=== PATIENT | female | born 1960 | race Caucasian/White ===

== ENCOUNTER → 2022-12-02 07:22 | Outpatient (BNVA) | payer OTHER, SELFPAY | PROVIDERS: PCP Nurse Practitioner Family; Visit Provider Student in an Organized Health Care Education/Training Program | DX: M05.79 Rheumatoid arthritis with rheumatoid factor of multiple sites without organ or systems involvement (principal); Z79.631 Long term (current) use of antimetabolite agent | CPT/HCPCS: 99202 ==

== ENCOUNTER → 2023-02-21 10:32 | Outpatient (BNVA) | payer OTHER, SELFPAY | PROVIDERS: PCP Nurse Practitioner Family; Visit Provider Student in an Organized Health Care Education/Training Program ==

== ENCOUNTER 2023-05-31 10:35 | Outpatient (AMB) | payer OTHER, SELFPAY ==
--- NOTE | 2023-05-31 10:40 | MHC.OFFVIS ---
Intake Vital Signs 05/31/23 10:41 Height 5 ft 6 in Weight 224 lb 10.417 oz BMI 36.3 BP 110/68 Blood Pressure Location Rt brachial Position Sitting Pulse 72 Pulse Source Pulse Oximeter Pulse Oximetry (%) 97 Oxygen Delivery Method Room Air Intake Visit Reasons: RA Intake Note: Patient presents for follow up RA Allergies No Known Allergies Allergy (Verified 05/31/23 10:43) Medication List - Last Reconciled 05/31/23 by Champ Leonardo MD bupropion HCl 300 mg PO DAILY calcipotriene 0.005% 1 appl topical DAILY calcium citrate-vitamin D3 250 mg-5 mcg (200 unit) 1 tab PO DAILY cyanocobalamin (vitamin B-12) (Vitamin B-12) 1,000 mcg PO DAILY ergocalciferol (vitamin D2) 50 mcg PO DAILY fluocinolone 0.025% 1 appl topical BID fluoxetine 40 mg PO DAILY folic acid 1 mg PO DAILY lactobacillus combination no.9 (Adult 50 Plus Probiotic) 4,000 mmu cells PO DAILY levothyroxine 175 mcg PO DAILY losartan 100 mg PO DAILY methotrexate sodium 20 mg (8 x 2.5 mg) PO QWEEK metoprolol succinate ER 50 mg PO DAILY semaglutide (weight loss) (Wegovy) mg subcut simvastatin 20 mg PO DAILY quaphbw-lxis-iphqw-oreg-capryl 100 mg-150 mg- 50 mg-150 mg caps PO DAILY HPI HPI Comments History of Present Illness Details 63-year-old female with seropositive rheumatoid arthritis returns for follow-up. She has been taking methotrexate 20 mg weekly since last visit. Patient states that her overall joint pain and stiffness is improved. However she continues to get intermittent joint pains especially in her knees. Of month ago she received a cortisone injection for her right knee with some improvement. Patient continues to feel unsteady. She feels that the room spins when she rolls over in bed. Also when she walks she feels unsteady. She also complains of generalized fatigue and exhaustion. She has had those symptoms for years. However she gets a little more fatigued the day after she takes methotrexate. She also gets some nausea with oral methotrexate. She has been getting leg cramps in her left lower extremity at night. This has been going on over the last month. Initial history: This is a 62-year-old female with a past medical history of psoriasis, malignant melanoma s/p excision, Lambert-Eaton syndrome, dyslipidemia, hypertension, migraines presents for evaluation of inflammatory arthritis. 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 She stated she has had extensive malignancy screening and her evaluation was negative. Patient has had bilateral knee pain for 6-7 years. Bilateral knee replacement was recommended, she had left knee replacement in February of 2021. Since then patient has had worsening bilateral knee pain as well as generalized fatigue and generalized stiffness. She was evaluated by cracker sprayer and was found to have pernicious anemia. She is currently getting vitamin B12 supplementation without significant improvement in her fatigue. She was evaluated by Dr. Galicia and was told she has an inflammatory arthritis but Dr. Galicia left the practice before treatment could be initiated. [facility] [place] Medical History Atypical chest pain Depression Eaton-Lambert syndrome Eczema Former heavy tobacco smoker Hyperlipemia Hypertension Hypothyroidism Left ventricular hypertrophy Malignant melanoma Migraines Morbid obesity Psoriasis Rosacea Thyroid nodule Surgical History Hx of knee surgery Family History Father Chronic ischemic heart disease Mother Chronic ischemic heart disease Maternal Grandmother Breast cancer Paternal Grandmother Breast cancer Social History Alcohol intake: current Alcohol intake frequency: does not drink Patient Tobacco Use Status: Never used Tobacco Review of Systems Const Reports fatigue, Reports headache(s) and Reports lethargy ENT Reports vertigo, Reports dizziness and Reports headache(s) Reports nocturia Musc Reports arthralgias Neuro Reports vertigo, Reports dizziness and Reports headache(s) Endo Reports fatigue Physical Exam Vital Signs: Last Vital Signs Pulse 72 05/31/23 10:41 BP 110/68 05/31/23 10:41 Pulse Ox 97 05/31/23 10:41 Oxygen Delivery Method Room Air 05/31/23 10:41 BMI result Body Mass Index 36.3 Const General: cooperative, healthy appearing and comfortable Nutritional Appearance: obese morbidly obese Orientation/consciousness: patient oriented x3 Limitations: ambulation with cane HEENT Head: Yes normocephalic and Yes atraumatic Mouth: moist mucous membranes Resp Effort & Inspection: normal respiratory effort and able to speak in complete sentences Auscultation: clear to auscultation bilaterally Cardio Rate: regular rate Rhythm: regular rhythm Heart sounds: S1 normal heart sound present and S2 normal heart sound present Neuro General: patient oriented x3 Extrem Other: Right wrist tenderness to palpation and pain with full flexion and extension No elbow tenderness or pain with full flexion and extension. Right knee pain with any range of motion Right ankle tenderness anteriorly. Negative MTP squeeze test Results Reviewed Results Reviewed: Labs 07/2022? JEB negative? HLA B27 negative? RF negative? SSA/SSB negative? CCP 192 CRP negative? CMP unremarkable? Sed rate 38 SI joint x-ray 07/2022? Impression no evidence of sacroiliitis or ankylosis.?? Lumbosacral spine x-ray 07/2022? Impression 1. Minimal degenerative change at L2-3 and L3-4 likely clinically insignificant.?? 2. No acute bony abnormality.? Minimal anterior wedging of L1 Bilateral ankle x-rays 12/22? Impression:? No acute bony abnormality.? Bilateral calcaneal spurring? Bilateral feet x-rays 01/19? Impression:? No acute bone abnormality.? Bilateral calcaneal spurring Bilateral hand x-rays? Impression:? No acute bone abnormality.? Soft tissue calcifications adjacent to the IP joints of the thumbs and right 1st carpal row which may represent early degenerative change Assessment & Plan Assessment & Plan (1) Rheumatoid arthritis: Comment: -ve RF, ++CCP Diagnosed 11/2022 Methotrexate started 11/2022 Code(s): M06.9 - Rheumatoid arthritis, unspecified Qualifiers: Rheumatoid arthritis location: multiple sites Rheumatoid factor presence: with rheumatoid factor Qualified Code(s): M05.79 - Rheumatoid arthritis with rheumatoid factor of multiple sites without organ or systems involvement Plan: This is a 63-year-old female with seropositive RA who returns for follow-up. Doing better overall since methotrexate was started but continues to have multiple swollen and tender joints as well as elevated inflammatory markers on methotrexate 20 mg once weekly. Will change methotrexate to subcutaneous route and increase to 25 mg weekly Infectious screening hepatitis panel and T spot negative 2022 Labs before next visit in 3 months (2) long term care phlebotomist methotrexate user: Code(s): Z79.631 - [facility] (current) use of antimetabolite agent Plan: Side effects of methotrexate were discussed with the patient in detail including oral ulcers, elevated LFTs, abdominal discomfort, and possible pancytopenia is. Will monitor patient for side effects with frequent lab work. Advised patient to take folic acid daily to prevent complications of methotrexate. Patient has had normocytic anemia for years. Her hemoglobin fluctuates from 9.0 to 11.0 (3) Osteoarthritis of right knee: Code(s): M17.11 - Unilateral primary osteoarthritis, right knee Qualifiers: Osteoarthritis type: primary Qualified Code(s): M17.11 - Unilateral primary osteoarthritis, right knee Plan: Patient was advised to get bilateral knee replacement just before the pandemic. The left knee was replaced but the right knee was not done. She is having worsening pain and difficulty walking using her right knee. Patient follows up regularly with orthopedic surgery and she had a cortisone injection a month ago (4) Dizziness: Code(s): R42 - Dizziness and giddiness Plan: Patient gets vertigo when she rolls over in bed. Advised patient to seek referral to an ENT specialist (5) Leg cramps: Code(s): R25.2 - Cramp and spasm Plan: Start vitamin-E trial Plan I spent 46 minutes reviewing patient's chart, evaluating patient, ordering diagnostic workup, counseling patient and documenting in the chart Orders: Orders Comprehensive Met. Panel 3 Months Z79.631 - [facility] (current) use of antimetabolite agent C Reactive Protein 3 Months Z79.631 - [facility] (current) use of antimetabolite agent Complete Blood Count Auto Diff 3 Months Z79.631 - long term care phlebotomist (current) use of antimetabolite agent Erythrocyte Sedimentation Rate 3 Months Z79.631 - [facility] (current) use of antimetabolite agent Medications: New methotrexate (PF) (Rasuvo (PF)) 25 mg (0.5 mL) subcut QWEEK 2 mL 2RF vitamin E (dl, acetate) nighlty 360 mg (2 x 180 mg (400 unit)) PO DAILY 60 caps 2RF Coding Level of Care Code Est Pt Level 5 (73263) Diagnoses Rheumatoid arthritis M05.79 Rheumatoid arthritis location: multiple sites Rheumatoid factor presence: with rheumatoid factor [facility] methotrexate user Z79.631 Osteoarthritis of right knee M17.11 Osteoarthritis type: primary Dizziness R42 Leg cramps R25.2
[2023-05-31 10:41] VITALS: BP 110/68; PULSE 72; O2SAT 97; BMI 36.3
== END 2023-05-31 11:30 | disposition home or self-care (01) ==
PROVIDERS: PCP Nurse Practitioner Family; Visit Provider Student in an Organized Health Care Education/Training Program
DX: M05.79 Rheumatoid arthritis with rheumatoid factor of multiple sites without organ or systems involvement (principal); Z79.631 Long term (current) use of antimetabolite agent; M17.11 Unilateral primary osteoarthritis, right knee; R42 Dizziness and giddiness; R25.2 Cramp and spasm
CPT/HCPCS: 99215

== ENCOUNTER → 2023-05-31 10:35 | Outpatient (BNVA) | payer OTHER, SELFPAY | PROVIDERS: PCP Nurse Practitioner Family; Visit Provider Student in an Organized Health Care Education/Training Program | DX: M05.79 Rheumatoid arthritis with rheumatoid factor of multiple sites without organ or systems involvement (principal); M17.11 Unilateral primary osteoarthritis, right knee; G70.80 Lambert-Eaton syndrome, unspecified; R53.83 Other fatigue; R42 Dizziness and giddiness; R25.2 Cramp and spasm; Z85.820 Personal history of malignant melanoma of skin; Z79.631 Long term (current) use of antimetabolite agent | CPT/HCPCS: 99212 ==

== ENCOUNTER 2023-09-07 10:59 | Outpatient (AMB) | payer OTHER, SELFPAY ==
[2023-09-07 11:01] VITALS: BP 142/70; PULSE 71; TEMP 36.2; O2SAT 99; BMI 37.3
--- NOTE | 2023-09-07 11:01 | MHC.OFFVIS ---
Intake Vital Signs 09/07/23 11:01 Height 5 ft 6 in Weight 231 lb 0.711 oz BMI 37.3 BP 142/70 H Blood Pressure Location Rt brachial Position Sitting Pulse 71 Pulse Source Pulse Oximeter Temp 97.1 F Temp Source Skin Pulse Oximetry (%) 99 Intake Visit Reasons: RA Intake Note: Pt last seen 05/31/23, presents today for follow up and test results. [employer] Rep Required: No Accompanied by: Self / Same As Patient Allergies No Known Allergies Allergy (Verified 09/07/23 11:06) Medication List - Last Reconciled 09/07/23 by Champ Leonardo MD albuterol sulfate 90 mcg/actuation inhalation bupropion HCl 300 mg PO DAILY calcipotriene 0.005% 1 appl topical DAILY veqkxzm-B1-ccfg-copper-bravo 325 mg-12.5 mcg -2.75 mg (Citracal-D3 Maximum Plus) 1 tab PO DAILY cyanocobalamin (vitamin B-12) (Vitamin B-12) 1,000 mcg PO DAILY ergocalciferol (vitamin D2) 50 mcg PO DAILY fluocinolone 0.025% 1 appl topical BID fluoxetine 40 mg PO DAILY folic acid 1 mg PO DAILY hydrocortisone 2.5% topical lactobacillus combination no.9 (Adult 50 Plus Probiotic) 4,000 mmu cells PO DAILY levothyroxine 175 mcg PO DAILY losartan 100 mg PO DAILY methotrexate (PF) (Rasuvo (PF)) 25 mg (0.5 mL) subcut QWEEK metoprolol succinate ER 50 mg PO DAILY metronidazole 1% 1 appl topical DAILY semaglutide (weight loss) (Wegovy) mg subcut semaglutide (weight loss) (Wegovy) mg subcut simvastatin 20 mg PO DAILY ejhfgeg-uxoz-vudpw-oreg-capryl 100 mg-150 mg- 50 mg-150 mg caps PO DAILY vitamin E (dl, acetate) 360 mg (2 x 180 mg (400 unit)) PO BEDTIME HPI HPI Comments History of Present Illness Details 63-year-old female with seropositive rheumatoid arthritis returns for follow-up. She is on Rasuvo 25 mg subcutaneously once weekly. She states that she continues to have pain in her fingers, toes, hands. She also has pain in her right knee. She was unable to walk 2 weeks ago. She saw her orthopedic surgeon and received a steroid injection. Previously right knee replacement was suggested then it was postponed during the pandemic. She states that gel injections are planned. States that she gets significant fatigue the day after she takes methotrexate. States that the leg cramps are improved overall. States that she will a neurologist soon to evaluate her Lambert-Eaton syndrome Initial history: This is a 62-year-old female with a past medical history of psoriasis, malignant melanoma s/p excision, Lambert-Eaton syndrome, dyslipidemia, hypertension, migraines presents for evaluation of inflammatory arthritis. 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 She stated she has had extensive malignancy screening and her evaluation was negative. Patient has had bilateral knee pain for 6-7 years. Bilateral knee replacement was recommended, she had left knee replacement in February of 2021. Since then patient has had worsening bilateral knee pain as well as generalized fatigue and generalized stiffness. She was evaluated by chief information security officer and was found to have pernicious anemia. She is currently getting vitamin B12 supplementation without significant improvement in her fatigue. She was evaluated by Dr. Galicia and was told she has an inflammatory arthritis but Dr. Galicia left the practice before treatment could be initiated. [facility] Medical History Left ventricular hypertrophy Hypertension Eaton-Lambert syndrome Rosacea Former heavy tobacco smoker Malignant melanoma Atypical chest pain Psoriasis Eczema Migraines Depression Morbid obesity Hyperlipemia Hypothyroidism Thyroid nodule Surgical History Hx of knee surgery Family History Father Chronic ischemic heart disease Mother Chronic ischemic heart disease Maternal Grandmother Breast cancer Paternal Grandmother Breast cancer Social History Alcohol intake: current Alcohol intake frequency: does not drink Patient Tobacco Use Status: Never used Tobacco Review of Systems Const Reports fatigue Musc Reports arthralgias Endo Reports fatigue Physical Exam Vital Signs: Last Vital Signs Temp 97.1 F 09/07/23 11:01 Pulse 71 09/07/23 11:01 BP 142/70 H 09/07/23 11:01 Pulse Ox 99 09/07/23 11:01 BMI result Body Mass Index 37.3 Const General: cooperative, healthy appearing and comfortable Nutritional Appearance: obese morbidly obese Orientation/consciousness: patient oriented x3 Limitations: ambulation with cane HEENT Head: Yes normocephalic and Yes atraumatic Resp Effort & Inspection: normal respiratory effort and able to speak in complete sentences Neuro General: patient oriented x3 Extrem Other: Right wrist tenderness to palpation and pain with full flexion and extension Mild left wrist swelling pain with flexion and extension No elbow tenderness or pain with full flexion and extension. Right knee pain with any range of motion Right ankle tenderness anteriorly. Negative MTP squeeze test Results Reviewed Results Reviewed: Labs 07/2022? JEB negative? HLA B27 negative? RF negative? SSA/SSB negative? CCP 192 CRP negative? CMP unremarkable? Sed rate 38 SI joint x-ray 07/2022? Impression no evidence of sacroiliitis or ankylosis.?? Lumbosacral spine x-ray 07/2022? Impression 1. Minimal degenerative change at L2-3 and L3-4 likely clinically insignificant.?? 2. No acute bony abnormality.? Minimal anterior wedging of L1 Bilateral ankle x-rays 12/22? Impression:? No acute bony abnormality.? Bilateral calcaneal spurring? Bilateral feet x-rays 01/19? Impression:? No acute bone abnormality.? Bilateral calcaneal spurring Bilateral hand x-rays? Impression:? No acute bone abnormality.? Soft tissue calcifications adjacent to the IP joints of the thumbs and right 1st carpal row which may represent early degenerative change Assessment & Plan Assessment & Plan (1) Rheumatoid arthritis: Comment: -ve RF, ++CCP Diagnosed 11/2022 Methotrexate started 11/2022 advanced to SQ 05/2023 effective Code(s): M06.9 - Rheumatoid arthritis, unspecified Qualifiers: Rheumatoid arthritis location: multiple sites Rheumatoid factor presence: with rheumatoid factor Qualified Code(s): M05.79 - Rheumatoid arthritis with rheumatoid factor of multiple sites without organ or systems involvement Plan: This is a 63-year-old female with seropositive RA who returns for follow-up. Doing better since methotrexate was advanced to subcutaneous form 25 mg weekly. She continues to have few swollen tender joints. Discussed risks and benefits of hydroxychloroquine. Start hydroxychloroquine 200 mg daily. Continue methotrexate subQ 25 mg weekly. Continue folic acid 1 mg daily. Start guaifenesin/DM trial the day after she takes methotrexate for methotrexate flu Infectious screening hepatitis panel and T spot negative 2022 Labs before next visit in 3 months (2) rn long term care methotrexate user: Code(s): Z79.631 - half-way (current) use of antimetabolite agent Plan: Monitor safety labs Due to her history of melanoma. Patient gets a skin check Q 6 months (3) Osteoarthritis of right knee: Code(s): M17.11 - Unilateral primary osteoarthritis, right knee Qualifiers: Osteoarthritis type: primary Qualified Code(s): M17.11 - Unilateral primary osteoarthritis, right knee Plan: Patient was advised to get bilateral knee replacement just before the pandemic. The left knee was replaced but the right knee was not done. She is having worsening pain and difficulty walking using her right knee. Patient follows up regularly with orthopedic surgery and she had a cortisone injection a few weeks ago. Gel injections are planned. (4) Leg cramps: Code(s): R25.2 - Cramp and spasm Plan: Improved with vitamin E. (5) Long-term use of hydroxychloroquine: Code(s): Z79.899 - Other skilled nursing (current) drug therapy Plan: Discussed risk of retinopathy with hydroxychloroquine. Advised patient to follow-up with an curing finisher (6) Immunization counseling: Code(s): Z71.85 - Encounter for immunization safety counseling Plan: Discussed ACR vaccination guidelines for all us with autoimmune rheumatic disease on immune suppression. Patient already received flu vaccine and COVID boosters for this season. She is due to get the RSV vaccine. Advised patient to hold methotrexate for 1 dose after vaccination Plan I spent 46 minutes reviewing patient's chart, evaluating patient, ordering diagnostic workup, counseling patient and documenting in the chart Orders: Orders Comprehensive Met. Panel 3 Months Z79.631 - rn long term care (current) use of antimetabolite agent Erythrocyte Sedimentation Rate 3 Months Z79.631 - half-way (current) use of antimetabolite agent Complete Blood Count Auto Diff 3 Months Z79.631 - rn long term care (current) use of antimetabolite agent C Reactive Protein 3 Months Z79.631 - half-way (current) use of antimetabolite agent Medications: New hydroxychloroquine 200 mg PO BID 60 tabs 2RF dextromethorphan-guaifenesin 30-600 mg THE DAY AFTER YOU TAKE METHOTREXATE 1 tab PO QWEEK 12 tabs 0RF Coding Level of Care Code Est Pt Level 5 (72217) Diagnoses Rheumatoid arthritis involving multiple sites with positive rheumatoid factor M05.79 Rheumatoid arthritis location: multiple sites Rheumatoid factor presence: with rheumatoid factor half-way methotrexate user Z79.631 Primary osteoarthritis of right knee M17.11 Osteoarthritis type: primary Leg cramps R25.2 Long-term use of hydroxychloroquine Z79.899 Immunization counseling Z71.85
== END 2023-09-07 13:29 | disposition home or self-care (01) ==
PROVIDERS: PCP Nurse Practitioner Family; Visit Provider Student in an Organized Health Care Education/Training Program
DX: M05.79 Rheumatoid arthritis with rheumatoid factor of multiple sites without organ or systems involvement (principal); Z79.631 Long term (current) use of antimetabolite agent; M17.11 Unilateral primary osteoarthritis, right knee; R25.2 Cramp and spasm; Z79.899 Other long term (current) drug therapy; Z71.85 Encounter for immunization safety counseling
CPT/HCPCS: 99215

== ENCOUNTER → 2023-09-07 10:59 | Outpatient (BNVA) | payer OTHER, SELFPAY | PROVIDERS: PCP Nurse Practitioner Family; Visit Provider Student in an Organized Health Care Education/Training Program | DX: M05.79 Rheumatoid arthritis with rheumatoid factor of multiple sites without organ or systems involvement (principal); M17.11 Unilateral primary osteoarthritis, right knee; Z79.631 Long term (current) use of antimetabolite agent; R25.2 Cramp and spasm; Z71.85 Encounter for immunization safety counseling; Z79.899 Other long term (current) drug therapy | CPT/HCPCS: 99212 ==

== ENCOUNTER 2023-11-01 13:09 | Outpatient (AMB) | payer OTHER, SELFPAY ==
[2023-11-01 13:12] VITALS: BP 148/84; BMI 37.3
--- NOTE | 2023-11-01 13:12 | A.OFFVIS_ITS ---
Intake Vital Signs 11/01/23 13:12 Height 5 ft 6 in Weight 231 lb BMI 37.3 BP 148/84 H Blood Pressure Location Rt brachial Position Sitting Intake Visit Reasons: BXS-Hawnonm-Mvyid syndrome-Confirmed Intake Note: Patient presents for new patient eval. Allergies No Known Allergies Allergy (Verified 11/01/23 13:14) HPI HPI Comments History of Present Illness Details 63 y/o female patient presents for new i n-person visit for Lambert- Eaton evaluation. Pt reports she was diagnosed with Lambert-Eaton syndrome in 2005 when she lived in [facility]. She had EMG done and suspected LE, plasma test came back for positive for antibody. She stated she has had extensive malignancy screening and the result was negative. She does not have symptoms of muscle weakness, but reports sensitive to touch in her bilateral lower extremities. Pt states she often has tingling sensation on her legs, L>R, more often when she sleep or sitting long time. Having always dry mouth and dry eyes, and uses eye drops in the morning. Denies difficulty speaking or swallowing. Pt was also diagnosed RA recently, sees supervisor cigar making hand. Pt reports her bilateral knee pain, they hurts all the time. She was told that her left knee was bone to bone and had knee replacement done in 2020. Pt states that her balance can be off due to knee pain, she uses cane. She also has pain on her wrist and fingers. She is on Rasuvo q weekly, it improved her arthritic pain, but caused fatigue. REPLACED BY [facility] Medical History (Updated 12/03/23 @ 18:10 by Samia Maddox CNP) Left ventricular hypertrophy Hypertension Eaton-Lambert syndrome Rosacea Former heavy tobacco smoker Malignant melanoma Atypical chest pain Psoriasis Eczema Migraines Depression Morbid obesity Hyperlipemia Hypothyroidism Thyroid nodule Surgical History Hx of knee surgery Family History Father Chronic ischemic heart disease Mother Chronic ischemic heart disease Maternal Grandmother Breast cancer Paternal Grandmother Breast cancer Social History Alcohol intake: current Alcohol intake frequency: does not drink Patient Tobacco Use Status: Never used Tobacco Review of Systems Const All systems reviewed & are unremarkable except as noted in HPI and below Physical Exam Vital Signs: Last Vital Signs BP 148/84 H 11/01/23 13:12 BMI result Body Mass Index 37.3 Const General: cooperative Nutritional Appearance: obese Orientation/consciousness: patient oriented x3 Neck Neck: Yes full ROM and Yes supple Resp Effort & Inspection: normal respiratory effort and able to speak in complete sentences Neuro Other: right calf pain. General: patient oriented x3 and gait normal Cranial nerves: Yes CN's II-XII intact bilaterally Motor exam (neuro): 5/5 motor strength present throughout, Pronator motor function not present and no tremor noted Deep tendon reflexes (DTR's): Rt Biceps (C5, C6): 2+, Left biceps reflex intensity grade: 2+, Right brachioradialis reflex intensity grade: 2+, Left brachioradialis reflex intensity grade: 2+, Right patellar reflex intensity grade: 2+ and Left patellar reflex intensity grade: 2+ Psych Appearance: grossly normal Mental Status: mental status grossly normal Speech and movement: Normal speech and movement present Affect: normal affect Attitude: cooperative Assessment & Plan Assessment & Plan (1) Eaton-Lambert syndrome: Code(s): G70.80 - Lambert-Eaton syndrome, unspecified (2) Rheumatoid arthritis: Comment: -ve RF, ++CCP Diagnosed 11/2022 Methotrexate started 11/2022 advanced to SQ 05/2023 effective Code(s): M06.9 - Rheumatoid arthritis, unspecified Qualifiers: Rheumatoid arthritis location: multiple sites Rheumatoid factor presence: with rheumatoid factor Qualified Code(s): M05.79 - Rheumatoid arthritis with rheumatoid factor of multiple sites without organ or systems involvement Plan Pt currently has no symptoms, continue to monitor the symptoms including muscle weakness from arms and legs. Continue to follow up with supervisor cigar making hand for RA. Coding Level of Care Code New Pt Level 4 (92553) Diagnoses Eaton-Lambert syndrome G70.80 Rheumatoid arthritis involving multiple sites with positive rheumatoid factor M05.79 Rheumatoid arthritis location: multiple sites Rheumatoid factor presence: with rheumatoid factor
== END 2023-11-01 14:06 | disposition home or self-care (01) ==
PROVIDERS: PCP Nurse Practitioner Family; Visit Provider Nurse Practitioner Family
DX: G70.80 Lambert-Eaton syndrome, unspecified (principal); M05.79 Rheumatoid arthritis with rheumatoid factor of multiple sites without organ or systems involvement
CPT/HCPCS: 99204

== ENCOUNTER → 2023-11-01 13:09 | Outpatient (BNVA) | payer OTHER, SELFPAY | PROVIDERS: PCP Nurse Practitioner Family; Visit Provider Nurse Practitioner Family | DX: G70.80 Lambert-Eaton syndrome, unspecified (principal); M05.79 Rheumatoid arthritis with rheumatoid factor of multiple sites without organ or systems involvement | CPT/HCPCS: 99202 ==

== ENCOUNTER 2023-12-28 10:03 | Outpatient (AMB) | payer OTHER, SELFPAY ==
--- NOTE | 2023-12-28 10:07 | A.OFFVIS_ITS ---
Intake Vital Signs 12/28/23 10:09 Height 5 ft 6 in Weight 235 lb 7.259 oz BMI 38.0 BP 144/78 H Blood Pressure Location Rt brachial Position Sitting Pulse 72 Pulse Source Pulse Oximeter Intake Visit Reasons: RA Intake Note: Patient presents today for Rheumatoid arthritis follow up. Operations Planner Required: No Accompanied by: Self / Same As Patient Allergies No Known Allergies Allergy (Verified 12/28/23 10:10) Medication List - Last Reconciled 12/28/23 by Champ Leonardo MD albuterol sulfate 90 mcg/actuation inhalation bupropion HCl 300 mg PO DAILY calcipotriene 0.005% 1 appl topical DAILY zqqnljq-U1-rhvl-copper-bravo 325 mg-12.5 mcg -2.75 mg (Citracal-D3 Maximum Plus) 1 tab PO DAILY cyanocobalamin (vitamin B-12) (Vitamin B-12) 1,000 mcg PO DAILY ergocalciferol (vitamin D2) 50 mcg PO DAILY fluocinolone 0.025% 1 appl topical BID fluoxetine 40 mg PO DAILY folic acid 1 mg PO DAILY hydrocortisone 2.5% topical hydroxychloroquine 200 mg PO BID lactobacillus combination no.9 (Adult 50 Plus Probiotic) 4,000 mmu cells PO DAILY levothyroxine 175 mcg PO DAILY losartan 100 mg PO DAILY metoprolol succinate ER 50 mg PO DAILY metronidazole 1% 1 appl topical DAILY Rasuvo (PF) (methotrexate (PF)) 25 mg (0.5 mL) subcut QWEEK NS semaglutide (weight loss) (Wegovy) mg subcut semaglutide (weight loss) (Wegovy) mg subcut simvastatin 20 mg PO DAILY uemabqvs-qxlg-gpcwu-oreg-capry 100 mg-150 mg- 50 mg-150 mg caps PO DAILY vitamin E (dl, acetate) 360 mg (2 x 180 mg (400 unit)) PO BEDTIME HPI HPI Comments History of Present Illness Details 63-year-old female with seropositive rhe umatoid arthritis returns for follow-up. She is on Rasuvo 25 mg subcutaneously once weekly. On hydroxychloroquine 200 mg Twice daily She states that she is doing about the same overall. Recently she has been having some right middle finger pain and stiffness. Triggering of right middle finger. She believes it is related to activity such as playing the piano. She tried taking the dextromethorphan/guaifenesin the day after she takes methotrexate but it did not help much. She took it once. She continues to have headaches for 1-2 days after taking the methotrexate. She continues to have dizziness. Hyd roxychloroquine did not make much of a difference. 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 States that she will be going back to her orthopedic surgeon and will be considering right knee replacement. She continues to have fatigue. Initial history: This is a 62-year-old female with a past medical history of psoriasis, malignant melanoma s/p excision, Lambert-Eaton syndrome, dyslipidemia, hypertension, migraines presents for evaluation of inflammatory arthritis. 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 She stated she has had extensive malignancy screening and her evaluation was negative. Patient has had bilateral knee pain for 6-7 years. Bilateral knee replacement was recommended, she had left knee replacement in February of 2021. Since then patient has had worsening bilateral knee pain as well as generalized fatigue and generalized stiffness. She was evaluated by coagulating operator and was found to have pernicious anemia. She is currently getting vitamin B12 supplementation without significant improvement in her fatigue. She was evaluated by Dr. Galicia and was told she has an inflammatory arthritis but Dr. Galicia left the practice before treatment could be initiated. [facility] Medical History Left ventricular hypertrophy Hypertension Eaton-Lambert syndrome Rosacea Former heavy tobacco smoker Malignant melanoma Atypical chest pain Psoriasis Eczema Migraines Depression Morbid obesity Hyperlipemia Hypothyroidism Thyroid nodule Surgical History Hx of knee surgery Family History Father Chronic ischemic heart disease Mother Chronic ischemic heart disease Lung cancer Maternal Grandmother Breast cancer Paternal Grandmother Breast cancer Social History Alcohol intake: current Alcohol intake frequency: does not drink Patient Tobacco Use Status: Never used Tobacco Review of Systems Const Reports fatigue and Reports headache(s) ENT Reports dizziness and Reports headache(s) Musc Reports arthralgias and Reports stiffness Neuro Reports dizziness and Reports headache(s) Endo Reports fatigue Physical Exam Vital Signs: Last Vital Signs Pulse 72 12/28/23 10:09 BP 144/78 H 12/28/23 10:09 BMI result Body Mass Index 38.0 Const General: cooperative, healthy appearing and comfortable Nutritional Appearance: obese morbidly obese Orientation/consciousness: patient oriented x3 Limitations: ambulation with cane HEENT Head: Yes normocephalic and Yes atraumatic Resp Effort & Inspection: normal respiratory effort and able to speak in complete sentences Neuro General: patient oriented x3 Extrem Other: Right wrist tenderness to palpation and pain with full flexion and extension Left wrists was no swelling tenderness or pain with flexion and extension Right 3rd and 4th flexor tendon tenderness Some stiffness and pain at PIP with flexion right middle finger Normal range of motion both shoulders without pain No elbow tenderness or pain with full flexion and extension. Right knee pain with any range of motion Negative MTP squeeze test Results Reviewed Results Reviewed: Labs 07/2022? JEB negative? HLA B27 negative? RF negative? SSA/SSB negative? CCP 192 CRP negative? CMP unremarkable? Sed rate 38 SI joint x-ray 07/2022? Impression no evidence of sacroiliitis or ankylosis.?? Lumbosacral spine x-ray 07/2022? Impression 1. Minimal degenerative change at L2-3 and L3-4 likely clinically insignificant.?? 2. No acute bony abnormality.? Minimal anterior wedging of L1 Bilateral ankle x-rays 12/22? Impression:? No acute bony abnormality.? Bilateral calcaneal spurring? Bilateral feet x-rays 01/19? Impression:? No acute bone abnormality.? Bilateral calcaneal spurring Bilateral hand x-rays? Impression:? No acute bone abnormality.? Soft tissue calcifications adjacent to the IP joints of the thumbs and right 1st carpal row which may represent early degenerative change Assessment & Plan Assessment & Plan (1) Rheumatoid arthritis: Comment: -ve RF, ++CCP Diagnosed 11/2022 Methotrexate started 11/2022 advanced to SQ 05/2023 effective HCQ added 08/2023 not very effective DC11/2023 Code(s): M06.9 - Rheumatoid arthritis, unspecified Qualifiers: Rheumatoid arthritis location: multiple sites Rheumatoid factor presence: with rheumatoid factor Qualified Code(s): M05.79 - Rheumatoid arth ritis with rheumatoid factor of multiple sites without organ or systems involvement Plan: This is a 63-year-old female with seropositive RA who returns for follow-up. On methotrexate 25 mg subQ weekly. Doing well with no active synovitis. She has a few tender joints and right 3rd finger triggering, all her complaints are degenerative and mechanical in nature. Inflammatory markers have normalized. Hydroxychloroquine was not helpful. She continues to have mild headaches 1 or 2 days after methotrexate. Dextromethorphan was not helpful. We discussed continuing methotrexate versus switching to biologics. 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 Patient gets a skin check Q 6 months (3) Osteoarthritis of right knee: Code(s): M17.11 - Unilateral primary osteoarthritis, right knee Qualifiers: Osteoarthritis type: primary Qualified Code(s): M17.11 - Unilateral primary osteoarthritis, right knee Plan: Patient was advised to get bilateral knee replacement just before the pandemic. The left knee was replaced but the right knee was not done. She is having worsening pain and difficulty walking using her right knee. Patient follows up regularly with orthopedic surgery , she states that she might be getting knee replacement soon. Advised patient to reach out to us for advice on how to hold her methotrexate perioperatively (4) Eaton-Lambert syndrome: Code(s): G70.80 - Lambert-Eaton syndrome, unspecified Plan: She mentions that in 2005 she was evaluated by a neurologist and was told that she has Lambert-Eaton syndrome. She states that she was evaluated for malignancy and no malignancy was identified. Of note patient has history of melanoma s/p resection. No treatment was offered for Lambert-Eaton as her symptoms were quite mild. Advised patient to bring me records of this She was re-evaluated by Neurology a few months ago and no additional workup was suggested Plan I spent 26 minutes reviewing patient's chart, evaluating patient, ordering diagnostic workup, counseling patient and documenting in the chart Orders: Orders Erythrocyte Sedimentation Rate 3 Months M06.9 - Rheumatoid arthritis, unspecified, Z79.631 - equipment operator intermodal yard (current) use of antimetabolite agent Complete Blood Count Auto Diff 3 Months M06.9 - Rheumatoid arthritis, unspecified, Z79.631 - equipment operator [employer] yard (current) use of antimetabolite agent Comprehensive Met. Panel 3 Months M06.9 - Rheumatoid arthritis, unspecified, Z79.631 - equipment operator [employer] yard (current) use of antimetabolite agent C Reactive Protein 3 Months M06.9 - Rheumatoid arthritis, unspecified, Z79.631 - nursing home (current) use of antimetabolite agent Medications: Discontinued hydroxychloroquine Discontinued Reason: Doctor's Order 200 mg PO BID 60 tabs 3RF Coding Level of Care Code Est Pt Level 4 (97178) Diagnoses Rheumatoid arthritis involving multiple sites with positive rheumatoid factor M05.79 Rheumatoid arthritis location: multiple sites Rheumatoid factor presence: with rheumatoid factor nursing home methotrexate user Z79.631 Primary osteoarthritis of right knee M17.11 Osteoarthritis type: primary Eaton-Lambert syndrome G70.80
[2023-12-28 10:09] VITALS: BP 144/78; PULSE 72; BMI 38.0
== END 2023-12-28 10:46 | disposition home or self-care (01) ==
PROVIDERS: PCP Nurse Practitioner Family; Visit Provider Student in an Organized Health Care Education/Training Program
DX: M05.79 Rheumatoid arthritis with rheumatoid factor of multiple sites without organ or systems involvement (principal); Z79.631 Long term (current) use of antimetabolite agent; M17.11 Unilateral primary osteoarthritis, right knee; G70.80 Lambert-Eaton syndrome, unspecified
CPT/HCPCS: 99214

== ENCOUNTER → 2023-12-28 10:03 | Outpatient (BNVA) | payer OTHER, SELFPAY | PROVIDERS: PCP Nurse Practitioner Family; Visit Provider Student in an Organized Health Care Education/Training Program | DX: M05.79 Rheumatoid arthritis with rheumatoid factor of multiple sites without organ or systems involvement (principal); M17.11 Unilateral primary osteoarthritis, right knee; G70.80 Lambert-Eaton syndrome, unspecified; Z79.631 Long term (current) use of antimetabolite agent | CPT/HCPCS: 99212 ==

== ENCOUNTER 2024-03-18 14:29 | Outpatient (AMB) | payer MEDICARE, SELFPAY ==
[2024-03-18 14:34] VITALS: BP 122/60; PULSE 72; O2SAT 97; BMI 40.1
--- NOTE | 2024-03-18 14:34 | A.OFFVIS_ITS ---
Vital Signs 03/18/24 14:34 Height 5 ft 6 in Weight 248 lb 10.903 oz BMI 40.1 BP 122/60 Blood Pressure Location Rt brachial Position Sitting Pulse 72 Pulse Source Pulse Oximeter Pulse Oximetry (%) 97 Oxygen Delivery Method Room Air Intake Visit Reasons: RA Intake Note: Patient last seen 12/28/23 presents today for follow up and test results. Reports issues with pharmacy and folic acid. Has not had it in over a week Quiller Tender Required: No Accompanied by: Self / Same As Patient Allergies doxycycline Adverse Reaction (Mild, Verified 03/18/24 14:58) Gastrointestinal Upset Medication List - Last Reconciled 03/18/24 by Champ Leonardo MD albuterol sulfate 90 mcg/actuation inhalation bupropion HCl XL 300 mg PO DAILY calcipotriene 0.005% 1 appl topical DAILY srtylxx-C4-czuj-copper-bravo 325 mg-12.5 mcg -2.75 mg (Citracal-D3 Maximum Plus) 1 tab PO DAILY cyanocobalamin (vitamin B-12) (Vitamin B-12) 1,000 mcg PO DAILY ergocalciferol (vitamin D2) 50 mcg PO DAILY fluocinolone 0.025% 1 appl topical BID fluoxetine 40 mg PO DAILY folic acid 1 mg PO DAILY hydrocortisone 2.5% topical lactobacillus combination no.9 (Adult 50 Plus Probiotic) 4,000 mmu cells PO DAILY levothyroxine 175 mcg PO DAILY losartan 100 mg PO DAILY metoprolol succinate ER 50 mg PO DAILY metronidazole 1% 1 appl topical DAILY Rasuvo (PF) (methotrexate (PF)) 25 mg (0.5 mL) subcut QWEEK NS simvastatin 20 mg PO DAILY vitamin E (dl, acetate) 360 mg (2 x 180 mg (400 unit)) PO BEDTIME HPI Comments Details: 64-year-old female with seropositive rheumatoid arthritis returns for follow-up. She is on Rasuvo 25 mg subcutaneously once weekly. She states that she is doing about the same overall. Recently she has been having some right middle finger pain and stiffness. Triggering of right middle finger. She believes it is related to activity such as playing the piano. Continues to have bilateral knee pain, worse on the right. Was evaluated by her orthopedic surgeon and gel injections were suggested but she was told that she will need to pay 300 dollars co-pay. She was told she needs to lose some weight for her replacement. She was on Wegovy until 01/2024 when she went on Medicare and her Wegovy was denied. She walks with her cane, she is also complaining of bilateral hip pain. Initial history: This is a 62-year-old female with a past medical history of psoriasis, malignant melanoma s/p excision, Lambert-Eaton syndrome, dyslipidemia, hypertension, migraines presents for evaluation of inflammatory arthritis. 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 She stated she has had extensive malignancy screening and her evaluation was negative. Patient has had bilateral knee pain for 6-7 years. Bilateral knee replacement was recommended, she had left knee replacement in February of 2021. Since then patient has had worsening bilateral knee pain as well as generalized fatigue and generalized stiffness. 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 She is currently getting vitamin B12 supplementation without significant improvement in her fatigue. She was evaluated by Dr. Galicia and was told she has an inflammatory arthritis but Dr. Galicia left the practice before treatment could be initiated. [facility] Medical History Left ventricular hypertrophy Hypertension Eaton-Lambert syndrome Rosacea Former heavy tobacco smoker Malignant melanoma Atypical chest pain Psoriasis Eczema Migraines Depression Morbid obesity Hyperlipemia Hypothyroidism Thyroid nodule Surgical History Hx of knee surgery Family History Father Chronic ischemic heart disease Mother Chronic ischemic heart disease Lung cancer Maternal Grandmother Breast cancer Paternal Grandmother Breast cancer Social History Alcohol intake: current Alcohol intake frequency: does not drink Patient Tobacco Use Status: Never used Tobacco Review of Systems Const Reports fatigue and Reports headache(s) ENT Reports dizziness and Reports headache(s) Musc Reports arthralgias and Reports stiffness Neuro Reports dizziness and Reports headache(s) Endo Reports fatigue Physical Exam Vital Signs: Last Vital Signs Pulse 72 03/18/24 14:34 BP 122/60 03/18/24 14:34 Pulse Ox 97 03/18/24 14:34 Oxygen Delivery Method Room Air 03/18/24 14:34 BMI result Body Mass Index 40.1 Const General: cooperative, healthy appearing and comfortable Nutritional Appearance: obese morbidly obese Orientation/consciousness: patient oriented x3 Limitations: ambulation with cane HEENT Head: Yes normocephalic and Yes atraumatic Resp Effort & Inspection: normal respiratory effort and able to speak in complete sentences Neuro General: patient oriented x3 Extrem Other: Right wrist tenderness to palpation and pain with full flexion and extension. No swelling Left wrist no swelling tenderness or pain with flexion and extension Left 2nd and 3rd PIP tenderness without swelling Right 3rd flexor tendon tenderness Some stiffness and pain at PIP with flexion right middle finger Normal range of motion both shoulders without pain No elbow tenderness or pain with full flexion and extension. Right knee pain with any range of motion Negative MTP squeeze test Results Reviewed Results Reviewed: Labs 07/2022? JEB negative? HLA B27 negative? RF negative? SSA/SSB negative? CCP 192 CRP negative? CMP unremarkable? Sed rate 38 SI joint x-ray 07/2022? Impression no evidence of sacroiliitis or ankylosis.?? Lumbosacral spine x-ray 07/2022? Impression 1. Minimal degenerative change at L2-3 and L3-4 likely clinically insignificant.?? 2. No acute bony abnormality.? Minimal anterior wedging of L1 Bilateral ankle x-rays 12/22? Impression:? No acute bony abnormality.? Bilateral calcaneal spurring? Bilateral feet x-rays 01/19? Impression:? No acute bone abnormality.? Bilateral calcaneal spurring Bilateral hand x-rays? Impression:? No acute bone abnormality.? Soft tissue calcifications adjacent to the IP joints of the thumbs and right 1st carpal row which may represent early degenerative change Assessment & Plan Assessment & Plan (1) Rheumatoid arthritis: Comment: -ve RF, ++CCP Diagnosed 11/2022 Methotrexate started 11/2022 advanced to SQ 05/2023 effective HCQ added 08/2023 not very effective DC 11/2023 Code(s): M06.9 - Rheumatoid arthritis, unspecified Category: Medical Qualifiers: Rheumatoid arthritis location: multiple sites Rheumatoid factor presence: with rheumatoid factor Qualified Code(s): M05.79 - Rheumatoid arthritis with rheumatoid factor of multiple sites without organ or systems involvement Plan: This is a 63-year-old female with seropositive RA who returns for follow-up. On methotrexate 25 mg subQ weekly. Doing well with no active synovitis. She has a few tender joints and right 3rd finger triggering, all her complaints are degenerative and mechanical in nature. Less likely to be related to RA. Continues to have minimal symptoms of methotrexate flu those did not improve with dextromethorphan. Symptoms are mild and well tolerated Continue with methotrexate subcutaneously 25 mg weekly Continue with folic acid 1 mg daily . Patient states that she is having problems with folic acid since she changed her insurance. Advised patient to let us know if she can not get it from her pharmacy and we can consider prescribing Leucovorin Infectious screening hepatitis panel and T spot negative 2022 Safety labs for methotrexate every 3 months Follow-up in 6 months (2) termite inspector methotrexate user: Code(s): Z79.631 - residential (current) use of antimetabolite agent Category: Medical Plan: Monitor safety labs Due to her history of melanoma. Patient gets a skin check Q 6 months (3) Osteoarthritis of right knee: Code(s): M17.11 - Unilateral primary osteoarthritis, right knee Category: Medical Qualifiers: Osteoarthritis type: primary Qualified Code(s): M17.11 - Unilateral primary osteoarthritis, right knee Plan: Patient was advised to get bilateral knee replacement just before the pandemic. The left knee was replaced but the right knee was not done. She is having worsening pain and difficulty walking using her right knee. Patient follows up regularly with orthopedic surgery , recently gel injections were suggested but due to recent change in her insurance she would have a 300 dollar co-pay which she can not afford at the moment. She is trying to lose weight in preparation in case she decides to proceed with right knee replacement (4) Eaton-Lambert syndrome: Code(s): G70.80 - Lambert-Eaton syndrome, unspecified Category: Medical Plan: She mentions that in 2005 she was evaluated by a neurologist and was told that she has Lambert-Eaton syndrome. She states that she was evaluated for malignancy and no malignancy was identified. Of note patient has history of melanoma s/p resection. No treatment was offered for Lambert-Eaton as her symptoms were quite mild. Advised patient to bring me records of this She was re-evaluated by Neurology 6 months ago (5) Greater trochanteric bursitis of both hips: Code(s): M70.61 - Trochanteric bursitis, right hip; M70.62 - Trochanteric bursitis, left hip Category: Medical Plan: I provided patient with a printout of home exercise Plan I spent 26 minutes reviewing patient's chart, evaluating patient, ordering diagnostic workup, counseling patient and documenting in the chart Orders: Orders Comprehensive Met. Panel Today M05.79 - Rheumatoid arthritis with rheumatoid factor of multiple sites without organ or systems involvement, Z79.631 - termite inspector (current) use of antimetabolite agent C Reactive Protein Today M05.79 - Rheumatoid arthritis with rheumatoid factor of multiple sites without organ or systems involvement, Z79.631 - residential (current) use of antimetabolite agent Erythrocyte Sedimentation Rate Today M05.79 - Rheumatoid arthritis with rheumatoid factor of multiple sites without organ or systems involvement, Z79.631 - residential (current) use of antimetabolite agent Complete Blood Count Auto Diff 3 Months M05.79 - Rheumatoid arthritis with rheumatoid factor of multiple sites without organ or systems involvement, Z 79.631 - termite inspector (current) use of antimetabolite agent Complete Blood Count Auto Diff 12/13/24 M05.79 - Rheumatoid arthritis with rheumatoid factor of multiple sites without organ or systems involvement, Z79.631 - termite inspector (current) use of antimetabolite agent Comprehensive Met. Panel 06/16/24 M05.79 - Rheumatoid arthritis with rheumatoid factor of multiple sites without organ or systems involvement, Z79.631 - residential (current) use of antimetabolite agent Comprehensive Met. Panel 09/14/24 M05.79 - Rheumatoid arthritis with rheumatoid factor of multiple sites without organ or systems involvement, Z79.631 - residential (current) use of antimetabolite agent Comprehensive Met. Panel 12/13/24 M05.79 - Rheumatoid arthritis with rheumatoid factor of multiple sites without organ or systems involvement, Z79.631 - residential (current) use of antimetabolite agent C Reactive Protein 06/16/24 M05.79 - Rheumatoid arthritis with rheumatoid factor of multiple sites without organ or systems involvement, Z79.631 - residential (current) use of antimetabolite agent C Reactive Protein 12/13/24 M05.79 - Rheumatoid arthritis with rheumatoid factor of multiple sites without organ or systems involvement, Z79.631 - termite inspector (current) use of antimetabolite agent Erythrocyte Sedimentation Rate Today M05.79 - Rheumatoid arthritis with rheumatoid factor of multiple sites without organ or systems involvement, Z79.631 - termite inspector (current) use of antimetabolite agent Erythrocyte Sedimentation Rate 09/14/24 M05.79 - Rheumatoid arthritis with rheumatoid factor of multiple sites without organ or systems involvement, Z79.631 - termite inspector (current) use of antimetabolite agent Erythrocyte Sedimentation Rate 12/13/24 M05.79 - Rheumatoid arthritis with rheumatoid factor of multiple sites without organ or systems involvement, Z79.631 - termite inspector (current) use of antimetabolite agent Complete Blood Count Auto Diff Today M05.79 - Rheumatoid arthritis with rheumatoid factor of multiple sites without organ or systems involvement, Z79.631 - termite inspector (current) use of antimetabolite agent Complete Blood Count Auto Diff 06/16/24 M05.79 - Rheumatoid arthritis with rheumatoid factor of multiple sites without organ or systems involvement, Z79.631 - termite inspector (current) use of antimetabolite agent Complete Blood Count Auto Diff 09/14/24 M05.79 - Rheumatoid arthritis with rheumatoid factor of multiple sites without organ or systems involvement, Z79.631 - residential (current) use of antimetabolite agent Comprehensive Met. Panel Today M05.79 - Rheumatoid arthritis with rheumatoid factor of multiple sites without organ or systems involvement, Z79.631 - Long t erm (current) use of antimetabolite agent C Reactive Protein Today M05.79 - Rheumatoid arthritis with rheumatoid factor of multiple sites without organ or systems involvement, Z79.631 - residential (current) use of antimetabolite agent C Reactive Protein 09/14/24 M05.79 - Rheumatoid arthritis with rheumatoid factor of multiple sites without organ or systems involvement, Z79.631 - termite inspector (current) use of antimetabolite agent Erythrocyte Sedimentation Rate 06/16/24 M05.79 - Rheumatoid arthritis with rheumatoid factor of multiple sites without organ or systems involvement, Z79.631 - termite inspector (current) use of antimetabolite agent Coding Level of Care Code Est Pt Level 4 (89861) Diagnoses Rheumatoid arthritis involving multiple sites with positive rheumatoid factor M05.79 Rheumatoid arthritis location: multiple sites Rheumatoid factor presence: with rheumatoid factor residential methotrexate user Z79.631 Primary osteoarthritis of right knee M17.11 Osteoarthritis type: primary Eaton-Lambert syndrome G70.80 Greater trochanteric bursitis of both hips M70.61; M70.62
== END 2024-03-18 15:18 | disposition home or self-care (01) ==
PROVIDERS: PCP Nurse Practitioner Family; Visit Provider Student in an Organized Health Care Education/Training Program
DX: M05.79 Rheumatoid arthritis with rheumatoid factor of multiple sites without organ or systems involvement (principal); Z79.631 Long term (current) use of antimetabolite agent; M17.11 Unilateral primary osteoarthritis, right knee; G70.80 Lambert-Eaton syndrome, unspecified; M70.61 Trochanteric bursitis, right hip; M70.62 Trochanteric bursitis, left hip
CPT/HCPCS: 99214

== ENCOUNTER → 2024-03-18 14:29 | Outpatient (BNVA) | payer MEDICARE, SELFPAY | PROVIDERS: PCP Nurse Practitioner Family; Visit Provider Student in an Organized Health Care Education/Training Program | DX: M05.79 Rheumatoid arthritis with rheumatoid factor of multiple sites without organ or systems involvement (principal); M17.11 Unilateral primary osteoarthritis, right knee; M70.61 Trochanteric bursitis, right hip; M70.62 Trochanteric bursitis, left hip; G70.80 Lambert-Eaton syndrome, unspecified; Z79.631 Long term (current) use of antimetabolite agent | CPT/HCPCS: 99212 ==

== ENCOUNTER 2024-09-18 13:46 | Outpatient (AMB) | payer MEDICARE, SELFPAY ==
--- NOTE | 2024-09-18 14:04 | MHC.OFFVIS ---
Vital Signs 09/18/24 14:16 Height 5 ft 6 in Weight 276 lb 0.3 oz BMI 44.5 BP 132/70 Blood Pressure Location Rt brachial Position Sitting Pulse 64 Pulse Source Pulse Oximeter Pulse Oximetry (%) 96 Oxygen Delivery Method Room Air Intake Visit Reasons: RA/CM APT Intake Note: Patient presents for RA. Allergies doxycycline Adverse Reaction (Mild, Verified 09/18/24 14:07) Gastrointestinal Upset Medication List - Last Reconciled 09/18/24 by Champ Leonardo MD albuterol sulfate 90 mcg/actuation inhalation bupropion HCl XL 300 mg PO DAILY calcipotriene 0.005% 1 appl topical DAILY ojnirpv-C9-ecmi-copper-bravo 325 mg-12.5 mcg -2.75 mg (Citracal-D3 Maximum Plus) 1 tab PO DAILY cyanocobalamin (vitamin B-12) (Vitamin B-12) 1,000 mcg PO DAILY ergocalciferol (vitamin D2) 50 mcg PO DAILY fluocinolone 0.025% 1 appl topical BID fluoxetine 40 mg PO DAILY folic acid 1 mg PO DAILY hydrochlorothiazide 25 mg PO QAM hydrocortisone 2.5% topical lactobacillus combination no.9 (Adult 50 Plus Probiotic) 4,000 mmu cells PO DAILY levothyroxine 175 mcg PO DAILY losartan 100 mg PO DAILY metoprolol succinate ER 50 mg PO DAILY metronidazole 1% 1 appl topical DAILY Rasuvo (PF) (methotrexate (PF)) 25 mg (0.5 mL) subcut QWEEK NS simvastatin 20 mg PO DAILY vitamin E (dl, acetate) 360 mg (2 x 180 mg (400 unit)) PO BEDTIME HPI Comments Details: 64-year-old female with seropositive rheumatoid arthritis returns for follow-up. She is on Rasuvo 25 mg subcutaneously once weekly. Patient has been quite frustrated recently. Since her insurance no longer covered Wegovy she has gained significant weight. She continues to gain weight. Her right knee pain from significant osteoarthritis is getting worse. She had gel injection in her right knee. She stated that it did not help. It made her pain worse. She was evaluated by her orthopedic surgeon who did her left knee replacement in 2020. She is on the schedule to have her right knee replaced. She states that the surgery were postponed as there was a shorter in IV fluids. Initial history: This is a 62-year-old female with a past medical history of psoriasis, malignant melanoma s/p excision, Lambert-Eaton syndrome, dyslipidemia, hypertension, migraines presents for evaluation of inflammatory arthritis. 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 She stated she has had extensive malignancy screening and her evaluation was negative. Patient has had bilateral knee pain for 6-7 years. Bilateral knee replacement was recommended, she had left knee replacement in February of 2021. Since then patient has had worsening bilateral knee pain as well as generalized fatigue and generalized stiffness. She was evaluated by campus recruiting coordinator and was found to have pernicious anemia. She is currently getting vitamin B12 supplementation without significant improvement in her fatigue. She was evaluated by Dr. Galicia and was told she has an inflammatory arthritis but Dr. Galicia left the practice before treatment could be initiated. [facility] Medical History Left ventricular hypertrophy Hypertension Eaton-Lambert syndrome Rosacea Former heavy tobacco smoker Malignant melanoma Atypical chest pain Psoriasis Eczema Migraines Depression Morbid obesity Hyperlipemia Hypothyroidism Thyroid nodule Surgical History H/O breast surgery Hx of knee surgery Family History Father Chronic ischemic heart disease Mother Chronic ischemic heart disease Lung cancer Maternal Grandmother Breast cancer Paternal Grandmother Breast cancer Social History Alcohol intake: current Alcohol intake frequency: does not drink Patient Tobacco Use Status: Never used Tobacco Female Reproductive History Menstrual Total pregnancies: 3 Number of Living Children: 2 Ab induced: 1 Review of Systems Const Reports headache(s) ENT Reports headache(s) Musc Reports arthralgias and Reports stiffness Neuro Reports headache(s) Physical Exam Vital Signs: Last Vital Signs Pulse 64 09/18/24 14:16 BP 132/70 09/18/24 14:16 Pulse Ox 96 09/18/24 14:16 Oxygen Delivery Method Room Air 09/18/24 14:16 BMI result Body Mass Index 44.5 Const Other: Has gained significant weight since last visit General: cooperative, healthy appearing and comfortable Nutritional Appearance: obese morbidly obese Orientation/consciousness: patient oriented x3 Limitations: ambulation with cane HEENT Head: Yes normocephalic and Yes atraumatic Mouth: moist mucous membranes Resp Effort & Inspection: normal respiratory effort and able to speak in complete sentences Auscultation: clear to auscultation bilaterally Cardio Rate: regular rate Rhythm: regular rhythm Skin General skin exam: no rashes or lesions noted Neuro General: patient oriented x3 Extrem Other: Walks with a limp Right wrist tenderness to palpation and pain with full flexion and extension. No swelling Left wrist no swelling tenderness or pain with flexion and extension Left 2nd and 3rd PIP tenderness without swelling Right 3rd flexor tendon tenderness Some stiffness and pain at PIP with flexion right middle finger Normal range of motion both shoulders without pain No elbow tenderness or pain with full flexion and extension. Right knee pain with any range of motion Negative MTP squeeze test Assessment & Plan Assessment & Plan (1) Rheumatoid arthritis: Comment: -ve RF, ++CCP Diagnosed 11/2022 Methotrexate started 11/2022 advanced to SQ 05/2023 effective HCQ added 08/2023 not very effective DC 11/2023 Code(s): M06.9 - Rheumatoid arthritis, unspecified Category: Medical Qualifiers: Rheumatoid arthritis location: multiple sites Rheumatoid factor presence: with rheumatoid factor Qualified Code(s): M05.79 - Rheumatoid arthritis with rheumatoid factor of multiple sites without organ or systems involvement Plan: This is a 63-year-old female with seropositive RA who returns for follow-up. On methotrexate 25 mg subQ weekly. Doing well with no active synovitis. Continues to have minimal symptoms of methotrexate flu those did not improve with dextromethorphan. Symptoms are mild and well tolerated Continue with methotrexate subcutaneously 25 mg weekly Continue with folic acid 1 mg daily . Patient states that she is having problems with folic acid since she changed her insurance. I prescribed Leucovorin. Patient will check with her pharmacy, if she has to pay for it. If not. She states that her insurance will cover the 0.4 mg dose of folic acid. If that is the case, she should take 3 a day Infectious screening hepatitis panel and T spot negative 2022 Safety labs for methotrexate every 3 months Follow-up in 6 months (2) exterminator helper termite methotrexate user: Code(s): Z79.631 - exterminator helper termite (current) use of antimetabolite agent Category: Medical Plan: Monitor safety labs Due to her history of melanoma. Patient gets a skin check Q 6 months (3) Osteoarthritis of right knee: Code(s): M17.11 - Unilateral primary osteoarthritis, right knee Category: Medical Qualifiers: Osteoarthritis type: primary Qualified Code(s): M17.11 - Unilateral primary osteoarthritis, right knee Plan: Recently evaluated by surgeon and scheduled for right knee replacement. She states that it should be done around 10/2024. Advised patient to hold methotrexate 1 week before surgery and resume about 2 weeks postop if there are no signs of wound infection and wound is healing reasonably (4) Eaton-Lambert syndrome: Code(s): G70.80 - Lambert-Eaton syndrome, unspecified Category: Medical Plan: She mentions that in 2005 she was evaluated by a neurologist and was told that she has Lambert-Eaton syndrome. She states that she was evaluated for malignancy and no malignancy was identified. Of note patient has history of melanoma s/p resection. No treatment was offered for Lambert-Eaton as her symptoms were quite mild. Plan I spent 26 minutes reviewing patient's chart, evaluating patient, ordering diagnostic workup, counseling patient and documenting in the chart Orders: Orders Complete Blood Count Auto Diff 6 Months M05.79 - Rheumatoid arthritis with rheumatoid factor of multiple sites without organ or systems involvement, Z79.631 - FDC (current) use of antimetabolite agent C Reactive Protein 6 Months M05.79 - Rheumatoid arthritis with rheumatoid factor of multiple sites without organ or systems involvement, Z79.631 - exterminator helper termite (current) use of antimetabolite agent Comprehensive Met. Panel 6 Months M05.79 - Rheumatoid arthritis with rheumatoid factor of multiple sites without organ or systems involvement, Z79.631 - exterminator helper termite (current) use of antimetabolite agent Erythrocyte Sedimentation Rate 6 Months M05.79 - Rheumatoid arthritis with rheumatoid factor of multiple sites without organ or systems involvement, Z79.631 - exterminator helper termite (current) use of antimetabolite agent Medications: New leucovorin calcium Take 1 tab once weekly the day after you take methotrexate 5 mg PO QWEEK 4 tabs 2RF Coding Level of Care Code Est Pt Level 4 (19702) Complex EM visit Add On G2211 Diagnoses Rheumatoid arthritis involving multiple sites with positive rheumatoid factor M05.79 Rheumatoid arthritis location: multiple sites Rheumatoid factor presence: with rheumatoid factor exterminator helper termite methotrexate user Z79.631 Primary osteoarthritis of right knee M17.11 Osteoarthritis type: primary Eaton-Lambert syndrome G70.80
[2024-09-18 14:16] VITALS: BP 132/70; PULSE 64; O2SAT 96; BMI 44.5
== END 2024-09-18 14:53 | disposition home or self-care (01) ==
PROVIDERS: PCP Nurse Practitioner Family; Visit Provider Student in an Organized Health Care Education/Training Program
DX: M05.79 Rheumatoid arthritis with rheumatoid factor of multiple sites without organ or systems involvement (principal); Z79.631 Long term (current) use of antimetabolite agent; M17.11 Unilateral primary osteoarthritis, right knee; G70.80 Lambert-Eaton syndrome, unspecified
CPT/HCPCS: 99214; G2211

== ENCOUNTER → 2024-09-18 13:46 | Outpatient (BNVA) | payer MEDICARE, SELFPAY | PROVIDERS: PCP Nurse Practitioner Family; Visit Provider Student in an Organized Health Care Education/Training Program | DX: M05.79 Rheumatoid arthritis with rheumatoid factor of multiple sites without organ or systems involvement (principal); M17.11 Unilateral primary osteoarthritis, right knee; G70.80 Lambert-Eaton syndrome, unspecified; R63.5 Abnormal weight gain; Z79.631 Long term (current) use of antimetabolite agent | CPT/HCPCS: 99212 ==

== ENCOUNTER 2025-04-02 09:45 | Outpatient (REF) | payer MEDICARE, SELFPAY ==
--- NOTE | ~2025-04-02 | XR_ITS ---
EXAMINATION: XR HAND, RIGHT CLINICAL INFORMATION: M05.79 - Rheumatoid arthritis with rheumatoid factor COMPARISON: None available. TECHNIQUE: PA, lateral, and oblique views of the right hand. FINDINGS: No cortical erosions are seen. There is subtle subjective juxta articular osteopenia at the fourth and fifth PIP joints. There is mild narrowing of the DIP joint third digit with marginal osteophytes and minimal sclerosis. No other analyzer evident. XR/XR hand RT min 3V IMPRESSION: Osteoarthritis of the DIP joint of the third digit. Subjective articular osteopenia of the fourth and fifth PIP joints is nonspecific. Electronically signed by: Trev Martini MD 04/02/2025 05:50 PM EDT
== END 2025-04-02 09:46 | disposition home or self-care (01) ==
LOC: HO.XRAY 09:45
PROVIDERS: PCP Nurse Practitioner Family; Visit Provider Student in an Organized Health Care Education/Training Program
DX: Z01.818 Encounter for other preprocedural examination (principal); M05.79 Rheumatoid arthritis with rheumatoid factor of multiple sites without organ or systems involvement; M17.11 Unilateral primary osteoarthritis, right knee; Z79.631 Long term (current) use of antimetabolite agent
CPT/HCPCS: 73130; 99212

== ENCOUNTER 2025-04-02 09:45 | Outpatient (AMB) | payer MEDICARE, SELFPAY ==
--- NOTE | 2025-04-02 09:47 | A.OFFVIS_ITS ---
Vital Signs 04/02/25 10:12 Height 5 ft 6 in Weight 278 lb 10.629 oz BMI 45.0 BP 142/78 H Blood Pressure Location Lt brachial Position Sitting Pulse 59 Pulse Source Pulse Oximeter Pulse Oximetry (%) 98 Oxygen Delivery Method Room Air Intake Visit Reasons: 6 month checkup/ MD approved visit Intake Note: Patient presents for RA follow up. Allergies doxycycline Adverse Reaction (Mild, Verified 04/02/25 09:52) Gastrointestinal Upset Medication List - Last Reconciled 04/02/25 by Puja Batista MD albuterol sulfate 90 mcg/actuation inhalation bupropion HCl XL 300 mg PO DAILY calcipotriene 0.005% 1 appl topical DAILY nnvoiol-F4-cuys-copper-bravo 325 mg-12.5 mcg -2.75 mg (Citracal-D3 Maximum Plus) 1 tab PO DAILY cyanocobalamin (vitamin B-12) (Vitamin B-12) 1,000 mcg PO DAILY ergocalciferol (vitamin D2) 50 mcg PO DAILY fluoxetine 40 mg PO DAILY furosemide 20 mg PO Q OTHER DAY leucovorin calcium 5 mg PO QWEEK levothyroxine 175 mcg PO DAILY losartan 100 mg PO DAILY metoprolol succinate ER 50 mg PO DAILY metronidazole 1% 1 appl topical DAILY Rasuvo (PF) (methotrexate (PF)) 25 mg (0.5 mL) subcut QWEEK 90 days NS simvastatin 20 mg PO DAILY vitamin E (dl, acetate) 360 mg (2 x 180 mg (400 unit)) PO BEDTIME HPI Comments Details: Patient is a 65-year-old female with asthma, depression anxiety [place] hypertension, hypothyroidism, hyperlipidemia, Eaton-Lambert syndrome, polyarticular osteoarthritis (status post left knee replacement in 2020) and seropositive rheumatoid arthritis here today for follow up Interval History: Patient last seen 09/18/[address] Leonardo. At that time she was on Rasuvo 25 mg weekly. No changes were made to her medications at that time as she was in clinical remission at that time. Since then she has been on and off antibiotics. And has been on and off the met hotrexate List of complaints: Fatigue Low back pain SOB 3rd finger on the right won't straighten Swelling to feet, ankles and calves When she was off the medication and noted swelling to her right shoulder and this improved after restarting the methotrexate. Rheumatologic History: -ve RF, ++CCP Diagnosed 11/2022 Methotrexate started 11/2022 advanced to SQ 05/2023 effective HCQ added 08/2023 not very effective DC 11/2023 Initial history: This is a 62-year-old female with a past medical history of psoriasis, malignant melanoma s/p excision, Lambert-Eaton syndrome, dyslipidemia, hypertension, migraines presents for evaluation of inflammatory arthritis. 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 She stated she has had extensive malignancy screening and her evaluation was negative. Patient has had bilateral knee pain for 6-7 years. Bilateral knee replacement was recommended, she had left knee replacement in February of 2021. Since then patient has had worsening bilateral knee pain as well as generalized fatigue and generalized stiffness. She was evaluated by access manager and was found to have pernicious anemia. She is currently getting vitamin B12 supplementation without significant improvement in her fatigue. She was evaluated by Dr. Galicia and was told she has an inflammatory arthritis but Dr. Galicia left the practice before treatment could be initiated. Current Rheumatology Medication(s): Methotrexate 25mg SC weekly Folic acid 1 mg daily [facility] Medical History Left ventricular hypertrophy Hypertension Eaton-Lambert syndrome Rosacea Former heavy tobacco smoker Malignant melanoma Atypical chest pain Psoriasis Eczema Migraines Depression Morbid obesity Hyperlipemia Hypothyroidism Thyroid nodule Surgical History H/O breast surgery Hx of knee surgery Family History Father Chronic ischemic heart disease Mother Chronic ischemic heart disease Lung cancer Maternal Grandmother Breast cancer Paternal Grandmother Breast cancer Social History (Updated 04/02/25 @ 10:12 by MICHELINE Wilkins) Household Members: None Housing: Apartment Alcohol intake: former Patient Tobacco Use Status: Never used Tobacco Review of Systems Const Details: Review of Systems Constitutional: Denies fever, chills, weight loss ENT: Denies vision changes, eye pain or eye redness, dental caries, dry mouth GI: Denies nausea, vomiting, diarrhea, abdominal pain, change in BM Pulm: Denies SOB, ORNELAS, hemoptysis, wheezing Cards: Denies chest pain, palpitations Skin: Denies Raynaud's, rash, nail changes, photosensitivity, PRODUCTION WEIGHER: Denies headaches, weakness, paresthesias, recurrent falls MSK: as per HPI All other systems reviewed and are unremarkable except noted above Physical Exam Vital Signs: Last Vital Signs Pulse 59 04/02/25 10:12 BP 142/78 H 04/02/25 10:12 Pulse Ox 98 04/02/25 10:12 Oxygen Delivery Method Room Air 04/02/25 10:12 BMI result Body Mass Index 45.0 Vital signs reviewed Physical Examination CONSTITUITIONAL Patient alert and cooperative. Well appearing and in no apparent painful distress HEENT Conjunctiva and sclera clear.?No lymphadenopathy. ? CHEST/RESPIRATORY SYSTEM Normal respiratory effort and able to speak in complete sentences. ?Clear to auscultation bilaterally. ?No crackles, rales, rhonchi, wheezes heard. CARDIAC SYSTEM Regular rate and rhythm. ?S1 and S2 heard no murmurs. ?Radial pulses intact bilaterally MSK Hands: ?Able to make a fist on the left. No synovitis noted to the MCPs, PIPs or DIPs. ?No tenderness to palpation of these joints. No deformities noted. ? Wrists: ?Full range of motion at the wrists without pain. ?No tenderness to palpation or synovitis noted to the wrists. Elbows: Full range of motion without pain. No tenderness, weakness, swelling, increased warmth or erythema. Shoulders: Full range of active range of motion without pain. No tenderness, weakness, swelling, increased warmth or erythema. Hips: Full range of motion without pain. Hip bursa: Tenderness to palpation Knees: ?Decreased ROM bilaterally.?No tenderness, swelling, increased warmth or erythema.? Ankles: Full range of motion. ?No tenderness, swelling, increased warmth or erythema.? Feet: ?Negative squeeze test. ?No tenderness to palpation or swelling of the MTPs. Tender points:?No tenderness to palpation of the bilateral trapezius, supraspinatus, greater trochanters, anterior costochondral junctions, bilateral gluteal areas, bilateral suboccipital muscle insertions SKIN Skin intact without rashes. Results Reviewed Results Reviewed: G labs reviewed 03/18/25 WBC 5.42 Hemoglobin 10.8 Platelets 235 ESR 25 CRP 3.6 Creatinine 0.9 EGFR >60 AST/ALT T spot and hepatitis panel nonreactive [facility] [place] 03/19/25 WBC 4.18 Hemoglobin 12.5 Platelets 322 ESR 2.0 CRP 1.1 Creatinine 0.9 EGFR >60 AST/ALT T spot and hepatitis panel nonreactive Assessment & Plan Assessment & Plan (1) Rheumatoid arthritis: Comment: -ve RF, ++CCP Diagnosed 11/2022 Methotrexate started 11/2022 advanced to SQ 05/2023 effective HCQ added 08/2023 not very effective DC 11/2023 Code(s): M06.9 - Rheumatoid arthritis, unspecified Category: Medical Qualifiers: Rheumatoid arthritis location: multiple sites Rheumatoid factor presence: with rheumatoid factor Qualified Code(s): M05.79 - Rheumatoid arthritis with rheumatoid factor of multiple sites without organ or systems involvement Plan: #Seropositive rheumatoid arthritis Patient is a 65-year-old female with seropositive rheumatoid arthritis here today for follow up. Currently in remission on methotrexate subcutaneous weekly. She has a right middle finger that will not fully straighten. I did not feel any evidence of flexor tenosynovitis/trigger finger. We will check x-rays. I discussed with her that her complaints including SOB and fatigue at this time are likely not related to her rheumatoid arthritis and she should follow up with her primary. Plan - Methotrexate 25mg SC every week - Leucovorin 5mg weekly - XR Right hand - RTC 6 months - Labs before visit: CBC, CMP, ESR, CRP (2) Osteoarthritis of right knee: Code(s): M17.11 - Unilateral primary osteoarthritis, right knee Category: Medical Qualifiers: Osteoarthritis type: primary Qualified Code(s): M17.11 - Unilateral primary osteoarthritis, right knee Plan: #Right knee OA Patient with right knee osteoarthritis. Planning to get a knee replacement April 23 (3) Pre-op evaluation: Code(s): Z01.818 - Encounter for other preprocedural examination Plan: #Pre-Op eval for Right TKR Patient is scheduled for right total knee replacement April 23. With respect to her rheumatoid arthritis she is currently in remission and there is no contraindication from a rheumatologic standpoint for moving forward with her surgery. With respect to her methotrexate she should continue the methotrexate in the perioperative period along with her leucovorin. Margi Blood., Teddy Cerrato., Alexis Valdivia., Patria Ngo, Debby Sanchez., Patria Hubbard, et al. [place] [employer]/[place] [employer] Guideline for the Perioperative Management of Antirheumatic Medication in Patients With Rheumatic Diseases Undergoing Elective Total Hip or Total Knee Arthroplasty. Arthritis Care Res 2021. [email or web address] (4) terminal manager methotrexate user: Code(s): Z79.631 - MCC (current) use of antimetabolite agent Category: Medical Plan: #Long-term Current Use of Methotrexate Discussed with patient the benefits and risks of methotrexate for managing their rheumatic condition Benefits include reduced pain, reduced mortality, maintenance of remission and reduction of flares Risks include oral ulcers, photosensitivity, hepatotoxicity, hematologic toxicity, pneumonitis, flu-like symptoms (especially day after administration), nodulosis, lymphomas ? Limit alcohol and avoid Bactrim ? Monitoring: ?CBC, BMP, LFTs every 3-4 months and hepatitis serologies as needed Plan I spent 45 minutes reviewing the record and labs, taking a history, examining the patient, discussing the treatment plan, ordering diagnostic work up and documenting in the medical record Orders: Orders XR hand RT min 3V Today M05.79 - Rheumatoid arthritis with rheumatoid factor of multiple sites without organ or systems involvement Complete Blood Count Auto Diff 6 Months M05.79 - Rheumatoid arthritis with rheumatoid factor of multiple sites without organ or systems involvement Comprehensive Met. Panel 6 Months M05.79 - Rheumatoid arthritis with rheumatoid factor of multiple sites without organ or systems involvement C Reactive Protein 6 Months M05.79 - Rheumatoid arthritis with rheumatoid factor of multiple sites without organ or systems involvement Erythrocyte Sedimentation Rate 6 Months M05.79 - Rheumatoid arthritis with rheumatoid factor of multiple sites without organ or systems involvement Coding Level of Care Code Est Pt Level 5 (10321) Complex EM visit Add On G2211 Diagnoses Rheumatoid arthritis involving multiple sites with positive rheumatoid factor M05.79 Rheumatoid arthritis location: multiple sites Rheumatoid factor presence: with rheumatoid factor Primary osteoarthritis of right knee M17.11 Osteoarthritis type: primary Pre-op evaluation Z01.818 terminal manager methotrexate user Z79.631
[2025-04-02 10:12] VITALS: BP 142/78; PULSE 59; O2SAT 98; BMI 45.0
== END 2025-04-02 10:56 | disposition home or self-care (01) ==
LOC: HO.RHE 09:46
PROVIDERS: PCP Nurse Practitioner Family; Visit Provider Student in an Organized Health Care Education/Training Program
DX: M05.79 Rheumatoid arthritis with rheumatoid factor of multiple sites without organ or systems involvement (principal); M17.11 Unilateral primary osteoarthritis, right knee; Z01.818 Encounter for other preprocedural examination; Z79.631 Long term (current) use of antimetabolite agent
CPT/HCPCS: 99215; G2211

== ENCOUNTER → 2025-04-02 11:13 | Outpatient (BNV) | payer MEDICARE, SELFPAY | PROVIDERS: PCP Nurse Practitioner Family; Visit Provider Radiology Diagnostic Radiology | DX: M19.041 Primary osteoarthritis, right hand (principal) | CPT/HCPCS: 73130 ==